=== PATIENT | female | born 2000 | race Caucasian/White ===

== ENCOUNTER 2021-07-26 15:40 | Emergency (ER) | payer OTHER ==
[2021-07-26 17:37] LABS: BASOPHIL 1.3 % (0-2); EOSINOPHIL 0.9 % (0-5); HCT 41.1 % (37.0-47.0); HGB 13.3 g/dl (12.5-16.0); LYMPHOCYTE 49.8 % (15-48); MCHC 32.4 g/dL (32.0-36.0); MCV 89.5 fL (78.0-100.0); MONOCYTE 4.6 % (0-12); MPV 10.7 fL (6.0-9.5); NEUTROPHIL 43.2 % (41-80); NRBC 0; PLT 332 K/uL (150-400); RBC 4.59 M/uL (4.20-5.40); RDW 12.5 % (11.5-14.0); WBC 4.6 K/uL (4.0-10.5)
[2021-07-26 17:49] LABS: ALBUMIN 3.5 g/dL (3.4-5.0); BILIRUBIN - TOTAL 0.3 mg/dL (0.2-1.0); BUN/CREAT RATIO (CALC) 22.1 RATIO; CREATININE 0.77 mg/dL (0.51-0.95); GLOBULIN (CALCULATION) 4.2 g/dL; POTASSIUM 3.2 mmol/L (3.5-5.1); TOTAL PROTEIN 7.7 g/dL (6.4-8.2)
== END 2021-07-26 19:26 | disposition home or self-care (01) ==
LOC: FER 15:40
PROVIDERS: Physician Assistant
DX: O90.89 Other complications of the puerperium, not elsewhere classified (principal); R07.9 Chest pain, unspecified; Z86.711 Personal history of pulmonary embolism; Z79.01 Long term (current) use of anticoagulants
CPT/HCPCS: 36415; 71275; 80053; 85025; J7040; Q9967

== ENCOUNTER 2021-10-08 03:37 | Emergency (ER) | payer OTHER ==
[2021-10-08 04:02] LABS: BASOPHIL 0.5 % (0-2); EOSINOPHIL 0.4 % (0-5); HCT 39.8 % (37.0-47.0); HGB 12.8 g/dl (12.5-16.0); LYMPHOCYTE 28.9 % (15-48); MCH 28.9 pg (25.0-31.0); MCHC 32.2 g/dL (32.0-36.0); MCV 89.8 fL (78.0-100.0); MONOCYTE 6.3 % (0-12); MPV 10.8 fL (6.0-9.5); NEUTROPHIL 63.6 % (41-80); NRBC 0; PLT 251 K/uL (150-400); RBC 4.43 M/uL (4.20-5.40); RDW 13.6 % (11.5-14.0); WBC 7.9 K/uL (4.0-10.5)
[2021-10-08 04:24] LABS: ALBUMIN 3.9 g/dL (3.4-5.0); BILIRUBIN - TOTAL 0.3 mg/dL (0.2-1.0); BUN/CREAT RATIO (CALC) 28.9 RATIO; CREATININE 0.76 mg/dL (0.51-0.95); GLOBULIN (CALCULATION) 3.3 g/dL; POTASSIUM 3.7 mmol/L (3.5-5.1); TOTAL PROTEIN 7.2 g/dL (6.4-8.2)
[2021-10-08 05:42] LABS: CORONAVIRUS 2019 SARS-COV-2 NEGATIVE (NEGATIVE); INFLUENZA A NAA NEGATIVE (NEGATIVE)
== END 2021-10-08 07:11 | disposition home or self-care (01) ==
LOC: FER 03:37
PROVIDERS: Emergency Medicine
DX: R07.9 Chest pain, unspecified (principal); Z20.822 Contact with and (suspected) exposure to COVID-19
CPT/HCPCS: 36415; 71275; 80053; 84484; 85025; 85379; 93005; Q9967; U0002